=== PATIENT | male | born 1955 | race Caucasian/White ===

== ENCOUNTER → 2024-02-21 12:55 | Outpatient (REF) | payer OTHER, SELFPAY | LOC: HWRAD 12:55 | PROVIDERS: ATTENDING PHYSICIAN Nurse Practitioner Family | DX: M25.551 Pain in right hip (principal); M25.552 Pain in left hip | CPT/HCPCS: 73523 ==

== ENCOUNTER → 2024-04-24 08:08 | Outpatient (REF) | payer OTHER, MEDICARE, SELFPAY | LOC: RAD 08:08 | PROVIDERS: ATTENDING PHYSICIAN Surgery Vascular Surgery | DX: I87.1 Compression of vein (principal) | CPT/HCPCS: 93978 ==

== ENCOUNTER 2024-05-08 06:05 | Day surgery (SDC) | payer OTHER, MEDICARE, SELFPAY ==
[2024-04-11 13:26] VITALS: BMI 31.1
[2024-04-11 14:01] LABS: Hematocrit 41.9 % (39.0-52.0); Hemoglobin 14.6 g/dL (13.0-18.0); Mean Corp Hgb Conc. 34.8 g/dL (33.0-37.0); Mean Corpuscular Hgb 30.2 pg (27.0-31.0); Mean Corpuscular Volume 86.7 fL (80.0-94.0); Mean Platelet Volume 10.8 fL (7.4-10.4); Platelet Count 189 10^3/uL (130-400); Red Blood Cell Count 4.83 10^6/uL (4.70-6.10); Red Cell Dist. Width 14.6 % (11.5-14.5); White Blood Cell Count 7.7 10^3/uL (4.8-10.8)
[2024-04-11 14:52] LABS: ALT (SGPT) 23 U/L (0-50); AST (SGOT) 27 U/L (17-59); Albumin 4.9 g/dl (3.5-5.0); Alkaline Phosphatase 108 U/L (38-126); Blood Urea Nitrogen 19 mg/dl (9-20); Carbon Dioxide 25 mmol/L (22-30); Chloride 105 mmol/L (98-107); Estimated Creatinine Clearance 61 ml/min; Glucose 83 mg/dl (70-99); Potassium 4.9 mmol/L (3.5-5.1); Sodium 143 mmol/L (135-145); Total Bilirubin 0.9 mg/dl (0.2-1.3); Total Protein 7.2 g/dl (6.3-8.2)
[2024-04-12 10:09] LABS: Glycohemoglobin (HgbA1c) 5.5 % (4.0-5.6)
--- NOTE | 2024-04-25 15:36 | VNURNOTE ---
Patient is scheduled for an elective MARI on 05/08/24- he is a same day patient. Spoke with patient prior to surgery. Introduced role of [facility] liaison.
Patient reports that he lives alone in a MULTI story home. There are 2 steps to enter. Patient reports he can stay on the first floor for a few days.
There is a powder room on the first floor. He currently functions independently. He can obtain a cane and a rolling walker and raised toilet seat.
PCP is Taco Baxter.
Pharmacy: [facility]
Discussed orthopedic program and post surgical plans.
Reviewed that he will have VN services initially and will then start outpatient PT. He has to choose an outpt PT. He has concerns about when he will be able to drive post-op. His son will be available to help for a few days post-op.
Patient selects [facility] for his home care needs and will determine outpatient PT.
[facility]
Patient is in agreement with plan.
Plan: [facility], outpt PT
[2024-05-02 11:18] VITALS: BMI 31.1
[2024-05-08] VITALS (13 sets, daily range): BP systolic 98–144; BP diastolic 60–86; PULSE 74; O2SAT 99
[2024-05-08] MEDS: TYLENOL 650 MG PO (06:24)
[2024-05-08] MEDS: CELEBREX 200 MG PO (06:24)
[2024-05-08 06:42] LABS: Glucose - Point of Care 162 mg/dl (70-99)
[2024-05-08] MEDS: NORMOSOL-R/PLASMALYTE-A 1000 IV (06:42)
[2024-05-08 08:18] LABS: Glucose - Point of Care 151 mg/dl (70-99)
--- NOTE | 2024-05-08 10:26 | PTCARENOTE ---
Patient did not set up out patient PT with [facility]. Patient never received a script at the office. Patient stated that he will call today when arriving home and work with Gerard to get out patient PT scheduled. Will monitor patient.
--- NOTE | 2024-05-08 10:29 | PTCARENOTE ---
When talking with patient about outpatient therapy he stated 'I dropped the ball and did not know how I would be feeling.' Patient told to call today to set up [facility]. Will monitor patient.
--- NOTE | 2024-05-08 10:42 | PTCARENOTE ---
Patient OOB and dressed. Patient can not void yet.
[2024-05-08] MEDS: ROXICODONE 5 MG PO (10:48)
[2024-05-08] MEDS: ANCEF 5 IV (11:00)
--- NOTE | 2024-05-08 11:10 | PTCARENOTE ---
Called into the OR at 1045 and requested that Landy Londono see patient as soon as she is done in the OR. Multiple things need to be added to the discharge instructions and patient needs a paper script prior to discharge for outpatient therapy.
--- NOTE | 2024-05-08 11:22 | PTCARENOTE ---
Dr. Castro made aware of medications that were incorrect or missing from d/c instructions. Told him that I need to see Landy and he said she would be over. Will monitor patient.
--- NOTE | 2024-05-08 11:46 | PTCARENOTE ---
Landy came to nurses station at 1140. All medications clarified and PT script written. Per office note patient was given a script in the office. Will monitor patient.
--- NOTE | 2024-05-08 12:29 | PTCARENOTE ---
Patient has been very impulsive since arriving back to [facility]. Patient frequently breaking hip precautions by crossing legs and twisting at times. Patient moves very fast and told that he needs to take his time. Picture of hip precautions up on the
wall for patient to refer to. Patient is aware of hip precautions.
== END 2024-05-08 12:58 | disposition home or self-care (01) ==
LOC: SDS 06:05
PROVIDERS: ATTENDING PHYSICIAN Orthopaedic Surgery; FAMILY PHYSICIAN Nurse Practitioner Family
DX: M16.12 Unilateral primary osteoarthritis, left hip (principal)
CPT/HCPCS: 27130; 36415; 73502; 80053; 82962; 83036; 85027; 86850; 86900; 86901; 87070; 93005; 97116; 97162; C1776

== ENCOUNTER 2024-10-23 06:02 | Day surgery (SDC) | payer OTHER, MEDICARE, SELFPAY ==
[2024-10-04 12:10] VITALS: BMI 28.5
[2024-10-04 13:45] LABS: Hematocrit 43.6 % (39.0-52.0); Hemoglobin 14.6 g/dL (13.0-18.0); Mean Corp Hgb Conc. 33.5 g/dL (33.0-37.0); Mean Corpuscular Hgb 29.9 pg (27.0-31.0); Mean Corpuscular Volume 89.2 fL (80.0-94.0); Mean Platelet Volume 11.1 fL (7.4-10.4); Platelet Count 158 10^3/uL (130-400); Red Blood Cell Count 4.89 10^6/uL (4.70-6.10); Red Cell Dist. Width 14.2 % (11.5-14.5); White Blood Cell Count 6.6 10^3/uL (4.8-10.8)
[2024-10-04 15:34] LABS: ALT (SGPT) 17 U/L (0-50); AST (SGOT) 22 U/L (17-59); Albumin 4.6 g/dl (3.5-5.0); Alkaline Phosphatase 100 U/L (38-126); Blood Urea Nitrogen 25 mg/dl (9-20); Calcium 9.3 mg/dl (8.4-10.2); Carbon Dioxide 21 mmol/L (22-30); Chloride 108 mmol/L (98-107); Estimated Creatinine Clearance 60 ml/min; Glucose 98 mg/dl (70-99); Potassium 4.8 mmol/L (3.5-5.1); Sodium 141 mmol/L (135-145); Total Bilirubin 0.7 mg/dl (0.2-1.3); Total Protein 6.7 g/dl (6.3-8.2); eGFR > 60.00
--- NOTE | 2024-10-09 13:49 | VNURNOTE ---
Patient is scheduled for an elective R MARI on 10/23/24- he is a same day patient with Dr Castro. Spoke with patient prior to surgery. Introduced role of [facility] Liaison. Patient reports that he lives with his son in a MULTI story home.
There are 2 steps to enter and a flight of steps to the second floor.
There is a powder room on the data architect manager. He has a commode, hip kit, cane and rolling walker.
He had VN services after his prior MARI and was same day surgery w/[facility].
PCP is Nilo Baxter.
Discussed [facility] joint protocol and post surgical plans.
Reviewed that he will have VN services initially and will then start outpatient PT.
Patient selects VN for his home care needs and will go to [facility] for outpatient PT. Scheduled for 10/25.
Patient is in agreement with plan and states that his son will be home with him. Advised to bring RW with him day of surgery. [facility] referral placed in [facility].
Plan: [facility] per [facility] joint protocol then [facility]
[2024-10-16 10:50] VITALS: BMI 28.5
[2024-10-23] VITALS (20 sets, daily range): BP systolic 93–131; BP diastolic 59–76; PULSE 64; O2SAT 99
[2024-10-23] MEDS: CELEBREX 200 MG PO (06:23)
[2024-10-23] MEDS: TYLENOL 650 MG PO (06:23)
[2024-10-23 06:36] LABS: Glucose - Point of Care 110 mg/dl (70-99)
[2024-10-23] MEDS: NORMOSOL-R/PLASMALYTE-A 1000 IV (06:37)
[2024-10-23 08:54] LABS: Glucose - Point of Care 145 mg/dl (70-99)
[2024-10-23] MEDS: ANCEF 5 IV (11:00)
[2024-10-23] MEDS: ROXICODONE 5 MG PO (13:02)
[2024-10-23] MEDS: FLOMAX 0.4 MG PO (14:08)
== END 2024-10-23 14:37 | disposition home health service (06) ==
LOC: SDS 06:02
PROVIDERS: ATTENDING PHYSICIAN Orthopaedic Surgery; FAMILY PHYSICIAN Nurse Practitioner Family; REFERRING PHYSICIAN Surgery Vascular Surgery
DX: M16.11 Unilateral primary osteoarthritis, right hip (principal)
CPT/HCPCS: 27130; C1776; C1713; 36415; 73502; 80053; 82962; 83036; 85027; 87070; 93005; 97162

== ENCOUNTER → 2024-11-21 08:30 | Outpatient (REF) | payer OTHER, SELFPAY | LOC: MRI 08:30 | PROVIDERS: ATTENDING PHYSICIAN Surgery; FAMILY PHYSICIAN Nurse Practitioner Family | DX: R97.20 Elevated prostate specific antigen [PSA] (principal) | CPT/HCPCS: 72197; A9575 ==

== ENCOUNTER → 2025-03-25 12:45 | Outpatient (REF) | payer OTHER, SELFPAY | LOC: EMG 12:45 | PROVIDERS: ATTENDING PHYSICIAN Podiatrist; FAMILY PHYSICIAN Nurse Practitioner Family | DX: E11.42 Type 2 diabetes mellitus with diabetic polyneuropathy (principal); R20.0 Anesthesia of skin | CPT/HCPCS: 95886; 95911 ==

== ENCOUNTER → 2025-05-05 08:12 | Outpatient (REF) | payer OTHER, SELFPAY | LOC: RAD 08:12 | PROVIDERS: ATTENDING PHYSICIAN Surgery Vascular Surgery; FAMILY PHYSICIAN Nurse Practitioner Family | DX: I87.1 Compression of vein (principal) | CPT/HCPCS: 93978 ==